=== PATIENT | female | born 1980 | race Caucasian/White ===

== ENCOUNTER 2019-10-31 11:09 | Emergency (ER) | payer OTHER ==
--- NOTE | 2019-10-31 12:14 | RAD REPORT ---
EXAM DESCRIPTION: CT - Head Brain Wo Cont - 10/31/2019 12:06 pm CLINICAL HISTORY: Right-sided facial droop, possible Law's palsy COMPARISON: None. TECHNIQUE: Axial 5 mm thick images of the head were obtained without IV contrast. All CT scans are performed using dose optimization technique as appropriate and may include automated exposure control or mA/KV adjustment according to patient size. FINDINGS: No intracranial hemorrhage, mass, edema or shift of mid-line structures. No acute infarcti on changes seen. No abnormal extra-axial fluid collections. Ventricles are normal. Mastoid air cells and visualized portions of the paranasal sinuses are clear. No acute bony findings. IMPRESSION: Negative non-contrast CT head examination.
--- NOTE | 2019-10-31 12:24 | ER ---
Nurse's Notes [facility] Name: Pranav Gates Age: 39 yrs Sex: Female : 1980 Arrival Date: 10/31/2019 Time: 11:13 Bed 12 Private MD: Darrel Bar Diagnosis: Law's palsy Presentation: 10/31 11:15 Presenting complaint: Patient states: Sent from PCP's office for evaluation and ss treatment of [place] Palsy. Pt reports yesterday morning she could tell that the R side of her face was slightly drooping because when she would rub her lips together to put on make up she noticed her lips weren't quite coming together completely. Pt states that she has been under a lot of stress lately. Transition of care: patient was not received from another setting of care. Onset of symptoms was October 30, 2019. Risk Assessment: Do you want to hurt yourself or someone else? Patient reports no desire to harm self or others. Initial Sepsis Screen: Does the patient meet any 2 criteria? No. Patient's initial sepsis screen is negative. Does the patient have a suspected source of infection? No. Patient's initial sepsis screen is negative. Care prior to arrival: None. 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 - Social history:: Smoking status: Patient/guardian denies using tobacco. - Ebola Screening: : Patient denies exposure to infectious person Patient denies travel to an Ebola-affected area in the 21 days before illness onset. Screenin:15 Abuse screen: Denies threats or abuse. Denies injuries from another. Nutritional ss screening: No deficits noted. Tuberculosis screening: Never had TB. Fall Risk None identified. Assessment: 11:15 General: Appears in no apparent distress. comfortable, Behavior is calm, cooperative, ss Denies fever, feeling ill, fatigue, chills. Pain: Denies pain. Neuro: Level of Consciousness is awake, alert, obeys commands, Oriented to person, place, time, situation, Mold Dumper are equal bilaterally Speech is normal, slight drooping to R side of face. Pupils are PERRLA, Reports difficulty swallowing tingling sensation to lips that began yesterday. Sensation that lips weren't meeting quite right when applying lilpstick. Cardiovascular: Capillary refill < 3 seconds is brisk in bilateral fingers. Respiratory: Respiratory effort is even, unlabored, Denies cough, shortness of breath. GI: No deficits noted. EENT: Oral mucosa is moist. Derm: Skin is pink, warm \T\ dry. normal. Musculoskeletal: Circulation, motion, and sensation intact. Range of motion: intact in all extremities, Swelling absent. Vital Signs: 11:19 BP 152 / 93; Pulse 84; Resp 16; Temp 98.0(TE); Pulse Ox 99% on R/A; Weight 72.57 kg; ss Height 5 ft. 2 in. (157.48 cm); Pain 0/10; 11:19 Body Mass Index 29.26 (72.57 kg, 157.48 cm) ss ED Course: 11:13 Patient arrived in ED. mr 11:14 Darrel Bar MD is Private Physician. mr 11:15 Patient has correct armband on for positive identification. Bed in low position. Call ss light in reach. 11:17 Triage completed. ss 11:19 Arm band placed on right wrist. ss 11:20 Nelda Castellanos, RN is Primary Nurse. iw 11:23 Selvin Yoo FNP-C is [facility]. la1 11:23 Roel Duarte MD is Attending Physician. la1 12:08 CT Head Brain wo Cont In Process Unspecified. EDMS 12:22 Carlos A Read MD is Referral Physician. la1 12:33 No provider procedures requiring assistance completed. Patient did not have IV access ss during this emergency room visit. Administered Medications: 12:36 Drug: Ativan 1 mg Route: PO; iw Outcome: 12:23 Discharge ordered by . la1 12:40 Discharged to home ambulatory, with family. iw 12:40 Condition: good 12:40 Discharge instructions given to patient, family, Instructed on discharge instructions, follow up and referral plans. medication usage, Demonstrated understanding of instructions, follow-up care, medications, Prescriptions given X 2. 12:41 Patient left the ED. iw Signatures: Dispatcher [employer] Winnie Kauffman Irene RN Cat Mclaughlin RN RN ss Selvin Yoo, ASSOCIATE PROFESSOR-C ASSOCIATE PROFESSOR-Cla1
--- NOTE | 2019-10-31 12:25 | EDPHYS ---
Physician Documentation [facility] Name: Pranav Gates Age: 39 yrs Sex: Female : 1980 Arrival Date: 10/31/2019 Time: 11:13 Bed 12 Private MD: Darrel Bar ED Physician Roel Duarte HPI: 10/31 11:39 This 39 yrs old Female presents to ER via Ambulatory with complaints of [place] la1 palsy. 11:39 The patient's problem is reported as a facial droop, on right. Onset: The la1 symptoms/episode began/occurred yesterday. Duration: The episode is continuous. Context: the episode(s) was witnessed, by no one, occurred at home. The symptoms are alleviated by nothing. The symptoms are aggravated by nothing. Associated signs and symptoms: Pertinent negatives: agitation, ataxia, blurred vision, chest pain, combativeness, confusion, diaphoresis, diarrhea, headache, lightheadedness, nausea, numbness. Severity of symptoms: At their worst the symptoms were moderate. The patient has not experienced similar symptoms in the past. pt reports that last night she started to notice she couldn't move the right side of her lips to apply her lip stick, then she began to notice that she could not move her right eye lid and eye brow as much as normal. The episode has continued since last night, no other neurological findings reported. Pt denies ROWLEY, reports she has been going through a divorce recently and under a lot of stress in addition. . 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 - Social history:: Smoking status: Patient/guardian denies using tobacco. - Ebola Screening: : Patient denies exposure to infectious person Patient denies travel to an Ebola-affected area in the 21 days before illness onset. ROS: 11:41 Constitutional: Negative for fever, chills, and weight loss, Eyes: Negative for injury, la1 pain, redness, and discharge, ENT: Negative for injury, pain, and discharge, Neck: Negative for injury, pain, and swelling, Cardiovascular: Negative for chest pain, palpitations, and edema, Respiratory: Negative for shortness of breath, cough, wheezing, and pleuritic chest pain, Abdomen/GI: Negative for abdominal pain, nausea, vomiting, diarrhea, and constipation, Back: Negative for injury and pain, MS/Extremity: Negative for injury and deformity. 11:41 Psych: Negative for depression, anxiety, suicide ideation, homicidal ideation, and hallucinations. 11:41 Neuro: Positive for facial weakness, Negative for altered mental status, dizziness, gait disturbance, headache, hearing loss, loss of consciousness, numbness, seizure activity, syncope, near syncope, tingling, tinnitus, tremor, visual changes. Exam: 11:42 Constitutional: This is a well developed, well nourished patient who is awake, alert, la1 and in no acute distress. Head/Face: Normocephalic, atraumatic. 11:42 Eyes: Periorbital structures: appear normal, Pupils: no acute changes, equal, round, and reactive to light and accomodation, Extraocular movements: intact throughout, Conjunctiva: normal, no acute changes. 11:57 ENT: Nares patent. No nasal discharge, no septal abnormalities noted. Tympanic la1 membranes are normal and external auditory canals are clear. Oropharynx with no redness, swelling, or masses, exudates, or evidence of obstruction, uvula midline. Mucous membranes moist. Neck: Trachea midline, no thyromegaly or masses palpated, and no cervical lymphadenopathy. Supple, full range of motion without nuchal rigidity, or vertebral point tenderness. No Meningismus. Chest/axilla: Normal chest wall appearance and motion. Nontender with no deformity. No lesions are appreciated. Cardiovascular: Regular rate and rhythm with a normal S1 and S2. No gallops, murmurs, or rubs. Normal PMI, no JVD. No pulse deficits. Respiratory: Lungs have equal breath sounds bilaterally, clear to auscultation No rales, rhonchi or wheezes noted. No increased work of breathing, no retractions or nasal flaring. Back: No spinal tenderness. No costovertebral tenderness. Full range of motion. Skin: Warm, dry with normal turgor. Normal color with no rashes, no lesions, and no evidence of cellulitis. MS/ Extremity: Pulses equal, no cyanosis. Neurovascular intact. Full, normal range of motion. 11:57 Neuro: Orientation: is normal, to person, place, time \T\ situation. Mentation: is normal, Memory: is normal, Cranial nerves: CN II- XII are normal as tested, visual sheridan are intact. extraocular movements are intact, facial droop noted on right, with forehead involved. no gross hearing deficit,. Nystagmus is absent. Tongue strength is normal, Cerebellar function: normal finger to nose testing, heel to jeter testing is normal, Motor: is normal, strength is 5/5 in all extremities, Sensation: is normal, no obvious gross deficits, numbness, is not appreciated, light touch sense is normal. 11:57 Psych: exam not indicated. 12:30 Radiologist reports: No acute findings la1 Vital Signs: 11:19 BP 152 / 93; Pulse 84; Resp 16; Temp 98.0(TE); Pulse Ox 99% on R/A; Weight 72.57 kg; ss Height 5 ft. 2 in. (157.48 cm); Pain 0/10; 11:19 Body Mass Index 29.26 (72.57 kg, 157.48 cm) ss MDM: 11:23 Patient medically screened. la1 12:20 Differential diagnosis: CVA, TIA, paralysis, drug effects, [place] palsy. Data reviewed: la1 vital signs, nurses notes, radiologic studies, and as a result, I will discharge patient. Data interpreted: Pulse oximetry: on room air is 99 %. Interpretation: normal. Counseling: I had a detailed discussion with the patient and/or guardian regarding: the historical points, exam findings, and any diagnostic results supporting the discharge/admit diagnosis, radiology results, the need for outpatient follow up, a family practitioner, a neurologist, to return to the emergency department if symptoms worsen or persist or if there are any questions or concerns that arise at home. Special discussion: I discussed with the patient/guardian in detail that at this point there is no indication for admission to the hospital. It is understood, however, that if the symptoms persist or worsen the patient needs to return immediately for re-evaluation. Based on the history and exam findings, there is no indication for further emergent testing or inpatient evaluation. I discussed with the patient/guardian the need to see the neurologist for further evaluation of the symptoms. I discussed with the patient/guardian the need to see the primary care provider for further evaluation of the symptoms. ED course: pt has unilateral minor facial paralysis that includes the forehead/eyebrow in the affected side. Pt has no other neurologic findings or complaints.. 12:30 Counseling: I had a detailed discussion with the patient and/or guardian regarding: the la1 presence of at least one elevated blood pressure reading (>120/80) during this emergency department visit. 10/31 11:38 Order name: CT Head Brain wo Cont; Complete Time: 12:20 la1 Administered Medications: 12:36 Drug: Ativan 1 mg Route: PO; iw Disposition: 13:28 Co-signature as Attending Physician, Roel Duarte MD I agree with the assessment and kdr plan of care. Disposition: 10/31/19 12:23 Discharged to Home. Impression: Law's palsy. - Condition is Stable. - Discharge Instructions: Law Palsy, Adult. - Prescriptions for Prednisone 20 mg Oral Tablet - take 3 tablet by ORAL route once daily for 5 days; 15 tablet. Valtrex 1 g Oral Tablet - take 1 tablet by ORAL route every 8 hours for 7 days; 21 tablet. - Work release form, Medication Reconciliation Form, Thank You Letter form. - Follow up: Private Physician; When: 2 - 3 days; Reason: Recheck today's complaints, Re-evaluation by your physician. Follow up: Carlos A Read MD; When: 2 - 3 days; Reason: Recheck today's complaints, Re-evaluation by your physician. - Problem is new. - Symptoms are unchanged. Signatures: Dispatcher [employer] EDRI Roel Duarte MD MD [facility] Nelda Castellanos RN RN iw Cat Lopez RN RN ss Selvin Yoo, MANAGER AREA-C MANAGER AREA-Cla1 Corrections: (The following items were deleted from the chart) 12:41 12:23 10/31/2019 12:23 Discharged to Home. Impression: Law's palsy. Condition is iw Stable. Forms are Medication Reconciliation Form, Thank You Letter, Antibiotic Education, Prescription Opioid Use. Follow up: Private Physician; When: 2 - 3 days; Reason: Recheck today's complaints, Re-evaluation by your physician. Follow up: Carlos A Read; When: 2 - 3 days; Reason: Recheck today's complaints, Re-evaluation by your physician. Problem is new. Symptoms are unchanged. la1
[2019-10-31] MEDS ORDERED: LORAZEPAM 1 MG TABLET ONE (12:37)
[2019-10-31 12:47] VITALS: BP 152/93; TEMP 98; O2SAT 99
== END 2019-10-31 12:41 | disposition home or self-care (01) ==
LOC: ER 11:09
DX: G51.0 Bell's palsy (principal); E03.9 Hypothyroidism, unspecified; F41.9 Anxiety disorder, unspecified; Z88.0 Allergy status to penicillin
CPT/HCPCS: 70450; 99283